=== PATIENT | female | born 2000 | race Caucasian/White ===

== ENCOUNTER 2024-05-07 21:48 | Emergency (ER) | payer BC, MEDICAID ==
[~2024-05-07] VITALS: Ht 175.3 cm; Wt 79.5 kg
[2024-05-07 21:55] VITALS: BP 155/100; PULSE 111; O2SAT 96
[2024-05-07] MEDS ORDERED: BENZ-38 PO (23:36)
[2024-05-07 23:37] VITALS: RESP 18
[2024-05-07] MEDS: benzonatate 100mg capsule PO ONE (23:51)
[2024-05-07] MEDS: dexamethasone 4mg tablet PO ONE (23:51)
[2024-05-07 23:53] VITALS: TEMP 100.6
== END 2024-05-07 23:55 | disposition home or self-care (01) ==
LOC: ER 21:49
DX: J06.9 Acute upper respiratory infection, unspecified (principal); R50.9 Fever, unspecified; Z79.899 Other long term (current) drug therapy; Z20.822 Contact with and (suspected) exposure to COVID-19
CPT/HCPCS: 36415; 71045; 87502; 87503; 87811; 99284